=== PATIENT | female | born 1945 | race Caucasian/White ===

== ENCOUNTER 2016-08-05 06:18 | Day surgery (SDC) | payer MEDICARE, OTHER ==
--- NOTE | ~2016-08-05 | EGD ---
EGD REPORT [facility] [address] [id number] NAME: RAJIV CALDERON : [birth year] STATUS : REG [facility]#: [id number] AGE: 70 ADM/REG DATE : 08/05/16 MR#: [id number] REPORT SERV DATE: 08/05/16 DICTATED BY: DATE: REPORT STATUS : Draft TRANSCRIBED BY: [employer] DATE: 08/05/16 [facility] Patient Name: Rajiv Calderon Date of : 1945 Attending MD: TUCKER MCDUFFIE MD Procedure Date No Time: 08/05/2016 Procedure: Upper GI endoscopy Indications: Surveillance procedure, Follow-up of gastric polyps Referring MD: EWSLY BRIONES Medicines: Monitored Anesthesia Care Complications: No immediate complications. Procedure: Pre-Anesthesia Assessment: - ASA Grade Assessment: III - A patient with severe systemic disease. After obtaining informed consent, the endoscope was passed under direct vision. Throughout the procedure, the patient's blood pressure, pulse, and oxygen saturations were monitored continuously. The GIF [id number] was introduced through the mouth, and advanced to the third part of duodenum. The upper GI endoscopy was accomplished without difficulty. The patient tolerated the procedure well. Findings: The Z-line was regular and was found 40 cm from the incisors. A 1 cm hiatus hernia was present. There is no endoscopic evidence of Guerin's esophagus, areas of erosion, ulcerations or varices in the entire esophagus. Patchy mildly erythematous mucosa was found in the gastric antrum and in the prepyloric region of the stomach. 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 Biopsies were taken with a cold forceps for histology. The examined duodenum was normal. There is no endoscopic evidence of mucosal abnormalities or ulceration in the entire examined duodenum. The cardia and gastric fundus were otherwise normal on retroflexion (diverticulum). Impression: - Z-line regular, 40 cm from the incisors. - Hiatus hernia. - Fundic diverticulum. EGD REPORT [address] [id number] NAME: RAJIV CALDERON : [birth year] STATUS : REG [facility] [place] PAT#: [id number] AGE: 70 ADM/REG DATE : 08/05/16 MR#: [id number] REPORT SERV DATE: 08/05/16 DICTATED BY: DATE: REPORT STATUS : Draft TRANSCRIBED BY: [facility] DATE: 08/05/16 - Erythematous mucosa in the antrum and prepyloric region of the stomach. - Normal examined duodenum. - Biopsies were taken with a cold forceps for histology. Recommendation: - Patient has a contact number available for emergencies. The signs and symptoms of potential delayed complications were discussed with the patient. Return to normal activities tomorrow. Written discharge instructions were provided to the patient. - Regular diet. - Discharge patient to home. - Continue present medications. - Await pathology results. Procedure Code(s): --- Professional --- 36392, Esophagogastroduodenoscopy, flexible, transoral; with biopsy, single or multiple Diagnosis Code(s): --- Professional --- K44.9, Diaphragmatic hernia without obstruction or gangrene K31.9, Disease of stomach and duodenum, unspecified K31.7, Polyp of stomach and duodenum CPT copyright 2013 [employer]. All rights reserved. The codes documented in this report are preliminary and upon remote medical coder review may be revised to meet current compliance requirements. TUCKER MCDUFFIE MD 08/05/2016 12:37 PM This report has been signed electronically. Number of Addenda: 0 Note Initiated On: 08/05/2016 7:17 AM Scope Withdrawal Time 0 hours 0 minutes 0 seconds [address] [id number]
[~2016-08-05 06:18] MED LIST: ACIDOPHILU1 PO; ALAVERT10 MG PO; ALEVE220 MG PO; ASA5GR PO; B COMPLEX-C OR; BISR PR; CALCIUM, MAG, ZINC PO; CLARIT10 PO; COZ50 PO; FLAXSEED OIL1000 MG PO; FLEX PO; HUMALOG SC; HUMALOGPEN SC; ICY HOT16 % EX; K500 PO; KLOR-CON M2020 MEQ PO; LANTUS SC; LEVEMIR SC; LEVOTHYROXIN150 MCG PO; LEVOTHYROXIN175 MCG PO; MELATONIN300 MCG PO; MIRALAXPKT PO; MOMUD PO; MULTIPLE VIT PO; NEUR100 PO; NORCO1 TAB PO; NOVOLOG SC; PEP20 PO; PRILO PO; SPIRO25 PO; VITAMIN D31000 UNIT PO; VITC500 PO; VITE1000 PO; ZINC220C PO; ZOL50 PO; [UNRECOGNIZED DRUG - OTHER] PO
== END 2016-08-05 23:59 | disposition home or self-care (01) ==
LOC: DMU 06:18
PROVIDERS: Internal Medicine Gastroenterology
PROC: 0DB68ZX Excision of Stomach, Via Natural or Artificial Opening Endoscopic, Diagnostic (ICD-10-PCS; principal; 2016-08-05 08:00)
DX: K31.89 Other diseases of stomach and duodenum (principal); K44.9 Diaphragmatic hernia without obstruction or gangrene; E66.01 Morbid (severe) obesity due to excess calories; G47.33 Obstructive sleep apnea (adult) (pediatric); E03.9 Hypothyroidism, unspecified; M79.7 Fibromyalgia; E11.9 Type 2 diabetes mellitus without complications; K21.9 Gastro-esophageal reflux disease without esophagitis; Z88.2 Allergy status to sulfonamides; Z88.0 Allergy status to penicillin; Z88.8 Allergy status to other drugs, medicaments and biological substances; Z90.89 Acquired absence of other organs; Z90.49 Acquired absence of other specified parts of digestive tract; Z98.51 Tubal ligation status; Z98.890 Other specified postprocedural states; Z79.899 Other long term (current) drug therapy
CPT/HCPCS: 82962; 88305